=== PATIENT | male | born 1970 | race Caucasian/White ===

== ENCOUNTER 2019-08-06 13:53 | Emergency (ER) | payer MEDICAID ==
[~2019-08-06] VITALS: Ht 167.6 cm; Wt 83.9 kg
[2019-08-06 14:00] VITALS: BP 122/65
--- NOTE | 2019-08-06 14:10 | NUR ---
C/O SUDDEN ONSET NON RADIATING L SIDED CHEST PAIN 10/04 X1 HOUR AGO WHILE WORKING OUTSIDE. PT DENIES N/V. SKIN COOL/DRY. PT ANSWERING QUESTIONS APPROPRIATELY. DENIES SOB. PT PLACED ON BEDSIDE BINDING DYER AT THIS TIME. DENIES MEDICAL HX. VSS.
--- NOTE | 2019-08-06 14:18 | NUR ---
VISH RAM AT BEDSIDE
[2019-08-06] MEDS ORDERED: KETOROLAC 30 MG/ML VIAL IVP ONE (14:20)
[2019-08-06 14:58] LABS: BASOPHILS # (AUTO) 0.1 K/uL (0.00-0.22); BASOPHILS % (AUTO) 0.9 % (0.0-2.0); EOSINOPHILS # (AUTO) 0.1 K/uL (0-0.4); EOSINOPHILS % (AUTO) 1.1 % (0.0-4.0); HEMATOCRIT 39.2 % (36-52); HEMOGLOBIN 13.2 g/dL (12.0-18.0); LYMPHOCYTES # (AUTO) 1.3 K/uL (2.0-11.5); LYMPHOCYTES % (AUTO) 12.7 % (20.5-51.1); MEAN CORPUSCULAR HEMOGLOBIN 29 pg (27-31); MEAN CORPUSCULAR HGB CONC 34 g/dL (33-37); MEAN CORPUSCULAR VOLUME 85.9 fL (80-94); MONOCYTES # (AUTO) 0.8 K/uL (0.8-1.0); MONOCYTES % (AUTO) 7.7 % (1.7-9.3); NEUTROPHILS # (AUTO) 7.8 K/uL (1.8-7.7); NEUTROPHILS % (AUTO) 77.6 % (42.2-75.2); PLATELET COUNT (AUTO) 254 K/uL (140-450); RED BLOOD CELL COUNT(AUTO) 4.57 MIL/uL (4.20-6.10); RED CELL DISTRIBUTION WIDTH 13.6 % (11.6-13.7); WHITE BLOOD COUNT (AUTO) 10.1 K/uL (4.8-10.8)
[2019-08-06 15:24] LABS: ALBUMIN 3.6 g/dL (3.4-5.0); ANION GAP 14.2 (8-16); CARBON DIOXIDE 26.7 mmol/L (21-32); CREATININE 0.8 mg/dL (0.6-1.3); POTASSIUM 3.9 mmol/L (3.5-5.1); TOTAL BILIRUBIN 0.5 mg/dL (0.0-1.0)
--- NOTE | 2019-08-06 16:20 | NUR ---
PT RESTING IN BED, VSS. NO NEW NEEDS AT THIS TIME
--- NOTE | 2019-08-06 17:00 | NUR ---
PT RESTING IN BED, DENIES PAIN AT THIS TIME
[2019-08-06 17:39] VITALS: BP 109/81
== END 2019-08-06 17:40 | disposition home or self-care (01) ==
LOC: MED 13:53
DX: R07.89 Other chest pain (principal)
CPT/HCPCS: 36415; 71045; 80053; 83880; 84484; 85025; 85610; 85730; 93005; 96374; 99285; J1885; Q0092

== ENCOUNTER 2019-10-24 06:36 | Emergency (ER) | payer MEDICAID ==
[~2019-10-24] VITALS: Ht 165.1 cm; Wt 72.6 kg
[2019-10-24 06:41] VITALS: BP 159/50
--- NOTE | 2019-10-24 06:51 | NUR ---
49 Y/O MALE RT SIDE CHEST PAIN X 1 HR TODAY. PT STATES IT RADIATES TO RIGHT SIDE AND BACK. 8/10 PAIN DESCRIBES IT PRESSURE/CRUSHING. +SOB D/T CHEST PAIN. LUNG SOUNDS CLA. PMH: DENIES NKA
--- NOTE | 2019-10-24 06:56 | NUR ---
ERMD AT BEDSIDE EVALUATING PT
[2019-10-24] MEDS ORDERED: diazePAM 5 MG TAB PO ONE (07:00)
[2019-10-24] MEDS ORDERED: KETOROLAC 30 MG/ML VIAL IM ONE (07:00)
--- NOTE | 2019-10-24 07:08 | NUR ---
Received report from KATIE Lewis. Transfer of care at this time
--- NOTE | 2019-10-24 07:08 | NUR ---
REPORT GIVEN TO DYLON WILSON FOR CONTINUITY OF CARE.
--- NOTE | 2019-10-24 07:27 | NUR ---
X-Ray at bedside.
[2019-10-24 07:28] LABS: BASOPHILS # (AUTO) 0.1 K/uL (0.00-0.22); BASOPHILS % (AUTO) 0.6 % (0.0-2.0); EOSINOPHILS # (AUTO) 0.2 K/uL (0-0.4); EOSINOPHILS % (AUTO) 1.1 % (0.0-4.0); HEMOGLOBIN 13.5 g/dL (12.0-18.0); LYMPHOCYTES # (AUTO) 1.4 K/uL (2.0-11.5); LYMPHOCYTES % (AUTO) 9.2 % (20.5-51.1); MEAN CORPUSCULAR HEMOGLOBIN 28 pg (27-31); MEAN CORPUSCULAR HGB CONC 33 g/dL (33-37); MEAN CORPUSCULAR VOLUME 85.8 fL (80-94); MONOCYTES # (AUTO) 0.9 K/uL (0.8-1.0); MONOCYTES % (AUTO) 6.4 % (1.7-9.3); NEUTROPHILS # (AUTO) 12.2 K/uL (1.8-7.7); NEUTROPHILS % (AUTO) 82.7 % (42.2-75.2); PLATELET COUNT (AUTO) 354 K/uL (140-450); RED BLOOD CELL COUNT(AUTO) 4.78 MIL/uL (4.20-6.10); RED CELL DISTRIBUTION WIDTH 13.9 % (11.6-13.7); WHITE BLOOD COUNT (AUTO) 14.8 K/uL (4.8-10.8)
[2019-10-24 07:58] LABS: ALBUMIN 3.6 g/dL (3.4-5.0); ANION GAP 13.9 (8-16); CARBON DIOXIDE 26.1 mmol/L (21-32); CREATININE 0.7 mg/dL (0.6-1.3); TOTAL BILIRUBIN 0.9 mg/dL (0.0-1.0)
[2019-10-24] MEDS ORDERED: NACL 0.9% 1,000 ML IV ONE (08:05)
--- NOTE | 2019-10-24 08:08 | NUR ---
20G iv placed to pts right AC.
[2019-10-24 08:11] LABS: CREATINE KINASE MB 1.1 ng/mL (0-3.6)
--- NOTE | 2019-10-24 08:12 | NUR ---
Pt to CT via rebecca
[2019-10-24] MEDS ORDERED: AZITHROMYCIN 250 MG TAB PO ONE (10:05)
[2019-10-24] MEDS ORDERED: cefTRIAXone 1,000 MG VIAL ONE (10:07)
--- NOTE | 2019-10-24 10:17 | NUR ---
Covid swab collected from pt
--- NOTE | 2019-10-24 10:46 | NUR ---
IV discontinued, 2x2 gauze placed to IV site
[2019-10-24 10:51] VITALS: BP 141/82
--- NOTE | 2019-10-24 10:52 | NUR ---
Patient discharged with v/s stable. Written and verbal after care instructions given and explained. Patient alert, oriented and verbalized understanding of instructions. Ambulatory with steady gait. All questions addressed prior to discharge. ID band removed. Patient advised to follow up with PMD. Rx of Naprosyn 500mg, Azithromycin 250mg, and [place] 5mg-325mg given. Patient educated on indication of medication including possible reaction and side effects. Opportunity to ask questions provided and answered.
--- NOTE | 2019-10-24 10:52 | NUR ---
Call pts [facility] for Covid results-- [phone]
--- NOTE | 2019-10-24 11:05 | NUR ---
Received covid results from lab-- Covid+. Pt made aware
== END 2019-10-24 10:52 | disposition home or self-care (01) ==
LOC: MED 06:36
DX: U07.1 COVID-19 (principal); J18.9 Pneumonia, unspecified organism; R07.89 Other chest pain
CPT/HCPCS: 36415; 71045; 71275; 80053; 82550; 82553; 83605; 83690; 83880; 84484; 85025; 87040; 87426; 93005; 96361; 96365; 96372; 99285; J0696; J1885; Q9967; J7030